=== PATIENT | female | born 1940 | race Asian ===

== ENCOUNTER → 2017-05-27 | Outpatient (CLI) | payer OTHER ==
[~2017-05-27] MED LIST: AMINOPHYLLINE 25 MG/ML, 10ML ONE; AMIO400T4 PO; AMLO10TA2 PO; ASPI-496 PO; CARV-39 PO; CYAN10002 IM; DABI150C PO; DILT120T3 PO; GLIP10TA13 PO; LEVO25TA4 PO; LEVO50TA5 PO; LOPE1TAB4 PO; LOSA1TAB12 PO; METF100010 PO; MULT-658 PO; MULT1TAB60 PO; POTA20TA89 PO; REGADENOSON 0.4 MG/5 ML SYRINGE ONE
== END | disposition home or self-care (01) ==
LOC: CFH 07:55
PROVIDERS: ATTEND Nurse Practitioner Family
DX: I48.91 Unspecified atrial fibrillation (principal)
CPT/HCPCS: 78452; 93017; A9502; J0280; J2785